=== PATIENT | female | born 1970 | race Caucasian/White ===

== ENCOUNTER 2017-11-26 21:20 | Inpatient (IN) ==
[2017-11-27] MEDS ORDERED: Acetaminophen 325 MG Tablet PO PRN (01:24)
[2017-11-27] MEDS ORDERED: Aluminum/Magnesium/Simethacone Susp 30 ML UDC PO PRN (01:25)
[2017-11-27] MEDS ORDERED: LORazepam 1 MG Tablet PO PRN ×2 (01:25→13:32)
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
[2017-11-27 14:55] LABS: Baso # (Auto) 0.1 th/mm3 (0.0-0.2); Baso % (Auto) 0.6 % (0.0-2.0); Eos # (Auto) 0.2 th/mm3 (0.0-0.4); Eos % (Auto) 1.7 % (0.0-4.0); Hemoglobin 14.5 gm/dL (11.6-15.3); Lymph # (Auto) 3.3 th/mm3 (1.0-4.8); Lymph % (Auto) 34.4 % (9.0-44.0); Mean Corpuscular HGB Conc 34.6 % (32.0-36.0); Mean Corpuscular Hemoglobin 35.2 pg (27.0-34.0); Mean Corpuscular Volume 101.6 fL (80.0-100.0); Mean Platelet Volume 7.8 fL (7.0-11.0); Mono # (Auto) 0.8 th/mm3 (0.0-0.9); Mono % (Auto) 7.9 % (0.0-8.0); Neut # (Auto) 5.3 th/mm3 (1.8-7.7); Neut % (Auto) 55.4 % (16.0-70.0); Platelet Count 247 th/mm3 (150-450); Red Blood Count 4.13 mil/mm3 (4.00-5.30); Red Cell Distribution Width 12.6 % (11.6-17.2); White Blood Count 9.5 th/mm3 (4.0-11.0)
[2017-11-27 15:14] LABS: Alanine Aminotransferase 18 U/L (10-53); Albumin 3.4 g/dL (3.4-5.0); Anion Gap 8 meq/L (5-15); Aspartate Aminotransferase 21 U/L (15-37); Blood Urea Nitrogen 14 mg/dL (7-18); Calcium 8.2 mg/dL (8.5-10.1); Carbon Dioxide 25.6 meq/L (21.0-32.0); Chloride 109 meq/L (98-107); Glomerular Filtration Rate 57 mL/min (>89); Glucose,Random 100 mg/dL (74-106); Potassium 3.9 meq/L (3.5-5.1); Sodium 143 meq/L (136-145)
[2017-11-27 15:23] LABS: Alkaline Phosphatase 35 U/L (45-117); Creatine Kinase 416 U/L (26-192); Total Protein 6.6 g/dL (6.4-8.2)
[2017-11-27 15:35] LABS: CKMB Percent 0.4 % (0.0-4.0); Creatine Kinase MB 1.5 ng/mL (0.5-3.6)
--- NOTE | 2017-11-27 16:04 | P.CONIM ---
History of Present Illness Consult date: 11/27/17 Requesting Physician: Davide Holt Reason for Consult: SOLE Primary Care Provider: Dr. Sanjay Bhandari History of Present Illness: Mrs. Jimenez is a 47 y/o female with hx of depression, anxiety and delusional disorder. She was transferred to [facility] on 11/27/17 from [facility] under a Bray act. Patient presented to [facility] after a drug overdose with a handful of aspirin, Zyprexa and Viibryd. She was admitted to the medical floor at [facility] for management of the overdose and transferred to [place] once medically cleared. Pts labs here at [facility] noted a Cr 1.04/BUN 14, and GFR 57 and total CK of 416. Pts outpt labs in 05/2017 noted Cr 0.66/BUN 12. [facility] Hospitalist team was consulted to help with medical management. Pt does not offer any complaints at the time of examination and refused physical examination. Past Medical history: Depression, previous suicide attempt in 09/2017 by overdose per outpt records Anxiety Delusional disorder Tobacco dependence Past Surgical History: Tonsillectomy Family History: Diabetes, HTN Brother committed suicide when the pt was 13 y/o Social History: (+)Tobacco use, 2ppd per outpt records (+)Alcohol use, pt was previously drinking 6 beers per day but recently decreased to 2-3 beers per day per H&P Pt is and has 2 children, a 15 y/o son and a 19 y/o daughter Pt is currently unemployed Review of Systems All other systems reviewed negative except as stated in HPI [facility] - History History Provided By: Patient, Medical Record - Tobacco History Second Hand Smoke Exposure: No Tobacco Use In Past 30 Days: Yes Smoking Status: Heavy tobacco smoker Tobacco Type: Cigarettes - Alcohol History How Often Do You Have a Drink Containing Alcohol: 4 or more times a week - Substance Use History Substance History: Active Abuse - Substance Use Type Alcohol Status: Active Route Used: By Mouth Frequency: 3-4 BEERS DAILY Last Used: 11/21/2017 Reason for Use: Calm Down, Get High - Immunization History Tetanus Immunization: <5 Years Hx Influenza Vaccine This Season: No Medications and Allergies Active Medications: Active Medications Acetaminophen (Tylenol) 650 mg PO Q4H PRN PRN Reason: PAIN 1-5 OR TEMP > 101 Al Hydrox/Mg Hydrox/Simethicone (Mag-Al Plus Susp Liq) 30 ml PO Q6H PRN PRN Reason: DYSPEPSIA Al Hydroxide/Mg Hydroxide (Milk Of Magnesia Liq) 30 ml PO Q24H PRN PRN Reason: CONSTIPATION Escitalopram Oxalate (Lexapro) 10 mg PO DAILY [facility] Flumazenil (Romazecon Inj) 0.2 mg IV.PUSH Q1M PRN PRN Reason: OVERSEDATION Folic Acid (Folic Acid) 1 mg PO DAILY [facility] Stop: 12/03/17 08:59 Hydroxyzine HCl (Atarax) 10 mg PO Q6H PRN PRN Reason: ANXIETY Lorazepam (Ativan) 1 mg PO Q4H PRN PRN Reason: for CIWA 8-10 Lorazepam (Ativan) 2 mg PO Q2H PRN PRN Reason: for CIWA 11-14 Lorazepam (Ativan Inj) 2 mg IV.PUSH Q2H PRN PRN Reason: for CIWA 11-14 Lorazepam (Ativan Inj) 2 mg IV.PUSH Q1H PRN PRN Reason: for CIWA 15-20 Lorazepam (Ativan Inj) 2 mg IV.PUSH Q15M PRN PRN Reason: for CIWA > 20 Lorazepam (Ativan Inj) 1 mg IV.PUSH Q4H PRN PRN Reason: for CIWA 8-10 Melatonin (Melatonin) 5 mg PO HS PRN PRN Reason: INSOMNIA Multivitamins/Minerals (Theragran-M) 1 tab PO DAILY [facility] Stop: 12/03/17 08:59 Risperidone (Risperdal) 0.5 mg PO BID [facility] Thiamine HCl (Vitamin B1) 100 mg PO DAILY [facility] Allergies Allergy/AdvReac Type Severity Reaction Status Date / Time Sulfa (Sulfonamide Allergy Unknown Unknown Verified 11/27/17 13:11 Antibiotics) Home Medications Medication Instructions Recorded Confirmed Type olanzapine 5 mg PO HS 11/27/17 11/27/17 History vilazodone [Viibryd] 40 mg PO DAILY 11/27/17 11/27/17 History Exam Vital signs: Vital Signs 11/27/17 01:00 11/27/17 06:55 Temperature 98.4 F 97.1 F L Pulse Rate 72 97 H Respiratory Rate 18 19 Blood Pressure 136/71 124/79 Pulse Oximetry 99 100 Intake & Output 11/26/17 11/27/17 11/27/17 18:59 06:59 18:59 Weight 51.7 kg Other: Weight On Admission 51.7 kg Narrative: Pt refused physical examination She was lying down in bed with her eyes closed in NAD Results - Labs CBC & Chem 7: 11/27/17 14:46 11/27/17 14:46 Labs: Laboratory Results - last 24 hr 11/27/17 11/27/17 11/27/17 14:46 14:46 14:46 WBC 9.5 RBC 4.13 Hgb 14.5 Hct 42.0 MCV 101.6 H MCH 35.2 H MCHC 34.6 RDW 12.6 Plt Count 247 MPV 7.8 Neut % (Auto) 55.4 Lymph % (Auto) 34.4 [place] % (Auto) 7.9 Eos % (Auto) 1.7 Baso % (Auto) 0.6 Neut # (Auto) 5.3 Lymph # (Auto) 3.3 [place] # (Auto) 0.8 Eos # (Auto) 0.2 Baso # (Auto) 0.1 WBC Differential . Differential Comment Auto diff final Sodium 143 Potassium 3.9 Chloride 109 H Carbon Dioxide 25.6 Anion Gap 8 BUN 14 Creatinine 1.04 H Estimated GFR 57 L Random Glucose 100 Calcium 8.2 L Total Bilirubin 0.2 AST 21 ALT 18 Alkaline Phosphatase 35 L Total Creatine Kinase 416 H CK-MB (CK-2) 1.5 CK-MB (CK-2) % 0.4 Troponin I Cancelled Total Protein 6.6 Albumin 3.4 TSH 1.040 Beta HCG, Qual 11/27/17 14:46 WBC RBC Hgb Hct MCV MCH MCHC RDW Plt Count MPV Neut % (Auto) Lymph % (Auto) [place] % (Auto) Eos % (Auto) Baso % (Auto) Neut # (Auto) Lymph # (Auto) [place] # (Auto) Eos # (Auto) Baso # (Auto) WBC Differential Differential Comment Sodium Potassium Chloride Carbon Dioxide Anion Gap BUN Creatinine Estimated GFR Random Glucose Calcium Total Bilirubin AST ALT Alkaline Phosphatase Total Creatine Kinase CK-MB (CK-2) CK-MB (CK-2) % Troponin I Total Protein Albumin TSH Beta HCG, Qual Cancelled Assessment and Plan - Assessment (1) SOLE (acute kidney injury) Code(s): N17.9 - Acute kidney failure, unspecified Status: Acute Plan: Attempted suicide via overdose Depression Delusions SOLE - Pt is a 47 y/o female with hx of depression, anxiety and delusional disorder. - She was transferred to [facility] on 11/27/17 from [facility] under a Bray act. Patient presented to [facility] after a drug overdose with a handful of aspirin, Zyprexa and Viibryd. - Pts labs here at [facility] noted a Cr 1.04/BUN 14, and GFR 57 and total CK of 416. - Pts outpt labs in 05/2017 noted Cr 0.66/BUN 12. - Pt is reportedly being transferred to Med/Psych unit so we will order IVF with NS @ 100mL/hr x 1 bag - Recheck BMP in AM - Attending has ordered Ammonia, HELENA, CPK, CKMB profile, HIV, RPR, Thiamine, Vitamin B12, TSH, and Troponin I - Her EKG was reviewed and her QT corrected was 398 - Repeat EKG in AM - Encouraged oral intake - Supportive care - Management of depression/delusions per Psychiatry Tobacco use - Tobacco cessation Alcohol use - [facility] protocol ordered (2) Depressive disorder Code(s): F32.9 - Major depressive disorder, single episode, unspecified Status : Acute (3) Unspecified psychosis Code(s): F29 - Unspecified psychosis not due to a substance or known physiological condition Status: Acute
[2017-11-27] MEDS ORDERED: Sod Chloride 0.9% Inj 1,000 ML IV.CONT SCH (16:30)
[2017-11-27 17:03] LABS: Vitamin B12 532 pg/mL (193-986)
[2017-11-28] MEDS: Melatonin 5 MG Tablet PO PRN (03:50)
[2017-11-28] MEDS: Folic Acid 1 MG Tablet PO SCH (08:16)
[2017-11-28] MEDS: Escitalopram 10 MG Tablet PO SCH (08:16)
[2017-11-28] MEDS: Multivitamin/Minerals Therapeutic Tablet PO SCH (08:17)
[2017-11-28 09:26] LABS: Calcium 8.6 mg/dL (8.5-10.1); Carbon Dioxide 24.1 meq/L (21.0-32.0); Potassium 4.2 meq/L (3.5-5.1)
[2017-11-28 09:47] LABS: CKMB Percent 0.3 % (0.0-4.0); Creatine Kinase MB 1.1 ng/mL (0.5-3.6)
--- NOTE | 2017-11-28 14:44 | MR ---
EXAM DATE: 11/28/2017 2:28 PM EDT AGE/SEX: 47 years / Female INDICATIONS: . Psychosis. CLINICAL DATA: This is the patient's initial encounter. Patient reports that signs and symptoms have been present for 1 day and indicates a pain score of 0/10. MEDICAL/SURGICAL HISTORY: None. Tonsillectomy. COMPARISON: No prior exams available for comparison. TECHNIQUE: Multiplanar, multisequence examination of the brain was performed without contrast. FINDINGS: Cerebrum: The ventricles are normal for age. No evidence of midline shift, mass lesion, hemorrhage or acute infarction. No extraaxial fluid collections are seen. The pituitary gland and suprasellar cistern are normal in configuration. White Matter: No significant signal abnormalities are seen in the white matter. Posterior Fossa: The cerebellum and brainstem are intact. The 4th ventricle is midline. The cerebel lopontine angle is unremarkable. The cerebellar tonsils are normal in position. Diffusion Imaging: No focal areas of restricted diffusion are seen. No evidence of acute infarction . Extracranial: The visualized portions of the orbits and paranasal sinuses are unremarkable. CONCLUSION: 1. Negative MR Brain non contrast. Electronically signed by: Oanh Caldera MD 11/28/2017 2:43 PM EDT
--- NOTE | 2017-11-28 16:15 | P.PNPSY ---
Subjective Chief Complaint: Overdose. Psychotic bipolar depression. Remarks: Patient seen for follow up; chart reviewed. Discussion with nursing staff reported that patient endorsing auditory hallucinations, and recent MRI done today. Patient was found sitting hospital bed noted B, cooperative. Patient states that she has been feeling "not good" reporting that she is unable to recall recent events but did recall taking pills in an overdose. Patient noted be tearful when speaking about this stating that she was having "really crazy thoughts, like to have her children" which contributed to her overdose. Patient states that the auditory hallucinations are there all the time and continues to endorse this. Prior to interview today. Patient did have psychic distress to these intrusive thoughts. Review of Systems All other systems reviewed negative except as stated in HPI Mental Status Examination Appearance: Appropriate Consciousness: Alert Orientation: x4 Motor Activity: Other (No motor abnormalities noted) Speech: Unremarkable Language: Adequate Fund of Knowledge: Adequate Attention and Concentration: Easily distracted Memory: Unremarkable (Grossly intact on clinical exam) Mood: Other (Depressed) Affect: Other (Inappropriate at times) Thought Process & Associations: Circumstantial Thought Content: Hallucinations, Delusional Hallucination Type: Auditory Delusion Type: Other (Ego-syntonic depressive delusions) Suicidal Ideation: Yes Suicidal Plan: No Suicidal Intention: No Homicidal Ideation: No Homicidal Plan: No Homicidal Intention: No Insight: Fair Judgment: Impulsive Assessment and Plan - Assessment (1) Unspecified psychosis Code(s): F29 - Unspecified psychosis not due to a substance or known physiological condition Status: Acute (2) Depressive disorder Code(s): F32.9 - Major depressive disorder, single episode, unspecified Status : Acute - Plan Plan: Patient this time continues to have ongoing auditory hallucinations as well as intrusive ego-dystonic thoughts of hurting others. increase risperidone 0.5 mg a.m./1 mg at bedtime for psychosis. Recent MRI with negative findings for acute pathology. We will continue to monitor mood and behavior. Discharge planning in progress. Justification for Continued Inpatient Stay: At risk of further decompensation a lower level of care. Request Healthcare Surrogate/Guardian Advocate?: No
[2017-11-29] MEDS: Melatonin 5 MG Tablet PO PRN ×2 (00:58→20:20)
--- NOTE | 2017-11-29 07:38 | P.DIET ---
Nutritional Evaluation Type of nutrition evaluation: initial Nutrition screening: [facility] [place]: Weight Loss, Low BMI Objective - Objective [place] body weight: 68 kg % IBW: 75 Body Weight Used for Calculations: Actual (57.1kg) Energy Needs - Lower Range (kCal/kg): 33 Energy Needs - Upper Range (kCal/kg): 38 Lower Limit kCal/kg (kCals): 1,706 Upper Limit kCal/kg (kCals): 1,965 Lower Limit Protein Factor (Grams per Kg): 1.1 Upper Limit Protein Factor (Grams per Kg): 1.3 Lower Protein Needs (Protein): 57 Upper Protein Needs (Protein): 67 Fluid Factor (ml/kg): 35 Estimated Fluid Needs (ml): 1,810 Dietitian Reviewed in Medical Record: Current diet, Curent medications, Intake & Output, Labs, Medical history Diet Order: Regulaar Objective Comments: PMH: Depression, Anxiety, Delusional Disorder, previous suicide attempt (09/2107) Meds include: Folic Acid, Theragran M, Thiamine, Risperdal Labs include: Glucose 140, TCK 410 (-)BM Assessment Assessment: Pt at nutritional risk r/t current clinical status. Pt admitted via [facility] for overdose. Noted pt refused physical exam on admission. Her nutritional needs are as assessed above. Pt's current po intake varies from 25-100%. Pt is extremely underweight at 75% of her ideal body weight with a BMI of 16.4. Will provide Enlive TID, each bottle contains 350kcals and 20gms protein. Will monitor po intake for adequacy. Recommendations: Regular diet with Enlive TID Dietitian to Monitor: Supplement acceptance, Diet tolerance, Weight change, PO Intake, Medical course
[2017-11-29] MEDS: Folic Acid 1 MG Tablet PO SCH (09:28)
[2017-11-29] MEDS: Multivitamin/Minerals Therapeutic Tablet PO SCH (09:29)
[2017-11-29] MEDS: Escitalopram 10 MG Tablet PO SCH (09:29)
--- NOTE | 2017-11-29 12:10 | ECG ---
Date Performed: 11/27/2017 Time Performed: 14:11:21 PTAGE: 47 years EKG: Sinus rhythm MODERATE T-WAVE ABNORMALITY, CONSIDER ANTERIOR ISCHEMIA ABNORMAL ECG NO PREVIOUS TRACING DOCTOR: Davide Torres Interpretating Date/Time 11/29/2017 12:09:13
--- NOTE | 2017-11-29 12:44 | ECG ---
Date Performed: 11/28/2017 Time Performed: 09:05:59 PTAGE: 47 years EKG: Sinus rhythm Nonspecific T wave changes NORMAL ECG PREVIOUS TRACING : 11/27/2017 14.11 DOCTOR: Davide Torres Interpretating Date/Time 11/29/2017 12:42:40
--- NOTE | 2017-11-29 16:14 | P.PNPSY ---
Subjective Chief Complaint: Overdose. Psychotic bipolar depression. Remarks: Patient seen for follow-up, chart reviewed. Discussion with nursing staff reported the patient asking about ECT, continues to endorse auditory hallucinations. Patient was found visiting with daughter noted to be, cooperative also noted to have slightly labile mood with inappropriate laughing at times. Patient states that she is continuing to have auditory hallucinations and intrusive thoughts of wanting to hurt her children. Patient reports having continued difficulty with sleep. Patient saw preservative on option of ECT and asking if she is going to get better. Patient has a history of noncompliance with medication and was reiterated to her importance of adherence to treatment. Review of Systems All other systems reviewed negative except as stated in HPI Mental Status Examination Appearance: Appropriate Consciousness: Alert Orientation: x4 Motor Activity: Other (No motor abnormalities noted) Speech: Unremarkable Language: Adequate Fund of Knowledge: Adequate Attention and Concentration: Easily distracted Memory: Unremarkable (Grossly intact on clinical exam) Mood: Other (Depressed) Affect: Labile, Other (Laughing inappropriately at times) Thought Process & Associations: Circumstantial Thought Content: Hallucinations, Delusional Hallucination Type: Auditory Delusion Type: Other (Ego-syntonic depressive delusions) Suicidal Ideation: No Suicidal Plan: No Suicidal Intention: No Homicidal Ideation: No Homicidal Plan: No Homicidal Intention: No Insight: Fair Judgment: Impulsive Assessment and Plan - Assessment (1) Unspecified psychosis Code(s): F29 - Unspecified psychosis not due to a substance or known physiological condition Status: Acute (2) Depressive disorder Code(s): F32.9 - Major depressive disorder, single episode, unspecified Status : Acute - Plan Plan: Patient continues with auditory hallucinations and intrusive thoughts. We will increase risperidone to 1 mg p.o. twice daily for psychosis. Continue rest of medications. We will continue to monitor mood and behavior. Discharge planning in progress. Justification for Continued Inpatient Stay: At risk of further decompensation a lower level care. Request Healthcare Surrogate/Guardian Advocate?: No
[2017-11-30] MEDS: Multivitamin/Minerals Therapeutic Tablet PO SCH (08:54)
[2017-11-30] MEDS: Folic Acid 1 MG Tablet PO SCH (08:55)
[2017-11-30] MEDS: Escitalopram 10 MG Tablet PO SCH (08:55)
--- NOTE | 2017-11-30 14:00 | P.PNPSY ---
Subjective Chief Complaint: Overdose. Remarks: Patient seen and examined with nurse. Chart reviewed. Case discussed with nursing staff. On my examination today, the patient remained somewhat paranoid. She believes that people are hacking into her [employer] account. Thought process is somewhat tangential with loosening of associations. She rambles about her mother playing some sort of tape back to her and saying that she was a bad seed and speaks about finding a man in her bed when she was at home several months ago. Regarding this latter episode, Dr. Forman had indicated that the patient had shared similar material with her, although the veracity or basis in reality of this report is presently unclear. She denies any SI or HI. Denies any AVH. She denies side effects from medications besides some mild tiredness. No physical complaints. Vital Signs Temp Pulse Resp BP Pulse Ox 11/30/17 04:00 98.1 F 67 16 125/67 11/30/17 00:00 97.9 F 70 17 100/55 L 94 L 11/29/17 20:00 98.1 F 67 16 101/50 L 95 11/29/17 18:22 98.5 F 94 H 18 127/57 L 96 Intake and Output 11/30/17 11/30/17 11/30/17 06:59 14:59 22:59 Intake Total 720 / 720 Balance 720 / 720 Intake: Oral 720 / 720 Laboratory Tests 11/27/17 11/27/17 11/27/17 14:46 14:46 14:46 WBC 9.5 Hgb 14.5 Plt Count 247 ESR 3 Sodium 143 Potassium 3.9 Chloride 109 H Carbon Dioxide 25.6 BUN 14 Creatinine 1.04 H Estimated GFR Random Glucose Calcium AST 21 ALT 18 Alkaline Phosphatase 35 L Ammonia Total Creatine Kinase 416 H CK-MB (CK-2) CK-MB (CK-2) % Vitamin B12 532 TSH 1.040 Beta HCG, Quant Less than 1 HELENA Screen RPR HIV 1&2 Ab/P24 Ag 4thGn 11/27/17 11/27/17 11/27/17 16:49 16:49 16:49 WBC Hgb Plt Count ESR Sodium Potassium Chloride Carbon Dioxide BUN Creatinine Estimated GFR Random Glucose Calcium AST ALT Alkaline Phosphatase Ammonia 19 Total Creatine Kinase CK-MB (CK-2) CK-MB (CK-2) % Vitamin B12 TSH Beta HCG, Quant HELENA Screen RPR Nonreactive HIV 1&2 Ab/P24 Ag 4thGn Nonreactive 11/27/17 11/28/17 16:49 08:52 WBC Hgb Plt Count ESR Sodium 138 Potassium 4.2 Chloride 105 Carbon Dioxide 24.1 BUN 9 Creatinine 0.86 Estimated GFR 70 L Random Glucose 140 H Calcium 8.6 AST ALT Alkaline Phosphatase Ammonia Total Creatine Kinase 410 H CK-MB (CK-2) 1.1 CK-MB (CK-2) % 0.3 Vitamin B12 TSH Beta HCG, Quant HELENA Screen Neg RPR HIV 1&2 Ab/P24 Ag 4thGn Labs reviewed. Organic causes of psychosis workup unrevealing. GFR improved but CK unchanged. Repeat EKG read as sinus rhythm with QTC of 430 ms, not prolonged. MRI brain read as normal. Review of Systems All other systems reviewed negative except as stated in HPI (Limitation: Psychosis) Mental Status Examination Appearance: Appropriate Consciousness: Alert Orientation: x4 Motor Activity: Normal gait, Other (No hand tremor, no dystonia, no dyskinesia, no other motor abnormalities noted.) Speech: Rapid (Somewhat rapid) Language: Other (Somewhat rambling) Fund of Knowledge: Adequate Attention and Concentration: Easily distracted Memory: Unremarkable (Grossly intact on clinical exam) Mood: Anxious, Other (Improved versus initial presentation) Affect: Anxious Thought Process & Associations: Loose associations, Tangential Thought Content: Delusional Hallucination Type: None Delusion Type: Paranoid Suicidal Ideation: No Suicidal Plan: No Suicidal Intention: No Homicidal Ideation: No Homicidal Plan: No Homicidal Intention: No Insight: Fair Judgment: Impulsive Mental Status Exam Remarks: No signs of withdrawal noted. Assessment and Plan - Assessment (1) Unspecified psychosis Code(s): F29 - Unspecified psychosis not due to a substance or known physiological condition Status: Acute (2) Depressive disorder Code(s): F32.9 - Major depressive disorder, single episode, unspecified Status : Acute - Plan Plan: Patient did have some marginally low blood pressures overnight and complains of some tiredness from psychotropic medications, and so I will hold off on titrating patient's medications today. I do think she would benefit from additional Risperdal, and this will likely be adjusted tomorrow. Dietitian input noted and appreciated. Continue to monitor on the inpatient unit. Continue other medications and care as ordered. Justification for Continued Inpatient Stay: Medication changes planned. Impairment in reality construction. Risk for decompensation in less restrictive environment. Discharge Planning: Pending psychiatric stabilization. Request Healthcare Surrogate/Guardian Advocate?: No
[2017-12-01 07:21] LABS: Calcium 8.8 mg/dL (8.5-10.1); Carbon Dioxide 29.2 meq/L (21.0-32.0); Potassium 4.1 meq/L (3.5-5.1)
[2017-12-01] MEDS: Folic Acid 1 MG Tablet PO SCH (09:41)
[2017-12-01] MEDS: Multivitamin/Minerals Therapeutic Tablet PO SCH (09:41)
[2017-12-01] MEDS: Escitalopram 10 MG Tablet PO SCH (09:41)
--- NOTE | 2017-12-01 13:45 | P.PNPSY ---
Subjective Chief Complaint: Overdose. Remarks: Patient seen and examined with nurse. Chart reviewed. Case discussed with nursing staff who reports the patient does remain somewhat internally stimulated. Case discussed with treatment team. On my examination today, the patient says that she is feeling much improved and is hopeful that we can begin to discuss discharge planning soon. Insight into the circumstances of presentation here and mental illness generally seem somewhat poor. For example when I ask about her thoughts regarding presenting suicide attempt the patient says blithely "I am not going to do that again." When I ask about her alcohol use she says "I do not need to drink." She does admit with some further questioning that her alcohol use was getting out of hand prior to admission. She remains a little bit guarded and I do suspect some degree of underlying thought disorder. Patient admits that she was not able to attend partial hospitalization program as recommended by outpatient psychiatrist because she was "a little paranoid." Denies side effects from medications. No physical complaints. Vital Signs Temp Pulse Resp BP Pulse Ox 12/01/17 16:00 98.5 F 66 18 108/56 L 96 12/01/17 05:51 97.9 F 76 16 118/62 96 11/30/17 18:21 98.4 F 69 17 124/58 L 99 Laboratory Results - last 24 hr 12/01/17 06:07 Sodium 141 Potassium 4.1 Chloride 105 Carbon Dioxide 29.2 Anion Gap 7 BUN 15 Creatinine 0.83 Estimated GFR 73 L Random Glucose 90 Calcium 8.8 Total Creatine Kinase 57 Labs reviewed. CK normalized. GFR stable. Review of Systems All other systems reviewed negative except as stated in HPI Mental Status Examination Appearance: Appropriate Consciousness: Alert Orientation: x4 Motor Activity: Normal gait, Other (No motor abnormalities noted. No signs of withdrawal noted.) Speech: Rapid (Normalizing) Language: Other (Less rambling) Fund of Knowledge: Adequate Attention and Concentration: Easily distracted Memory: Unremarkable (Grossly intact on clinical exam) Mood: Anxious Affect: Anxious Thought Process & Associations: Loose associations (Improving), Circumstantial Thought Content: Delusional Hallucination Type: None Delusion Type: Paranoid (Decreasing) Suicidal Ideation: No Suicidal Plan: No Suicidal Intention: No Homicidal Ideation: No Homicidal Plan: No Homicidal Intention: No Insight: Fair Judgment: Impulsive Assessment and Plan - Assessment (1) Unspecified psychosis Code(s): F29 - Unspecified psychosis not due to a substance or known physiological condition Status: Acute (2) Depressive disorder Code(s): F32.9 - Major depressive disorder, single episode, unspecified Status : Acute - Plan Plan: Titrate Risperdal to 1.5 mg twice daily to target residual psychotic symptoms. To consider long-acting injectable antipsychotic. Continue Lexapro as ordered. Continue to monitor on the inpatient unit. Continue other medications and care as ordered. Justification for Continued Inpatient Stay: High risk for decompensation in less restrictive environment. Medication changes. Concern for ongoing impairments in reality construction. Discharge Planning: Pending psychiatric stabilization. Given patient's reported recurrent recent hospitalizations, I believe that more extended observation and stabilization is warranted before transitioning her to lower level of care. Request Healthcare Surrogate/Guardian Advocate?: No
[2017-12-02] MEDS: Escitalopram 10 MG Tablet PO SCH (08:25)
[2017-12-02] MEDS: Folic Acid 1 MG Tablet PO SCH (08:26)
[2017-12-02] MEDS: Multivitamin/Minerals Therapeutic Tablet PO SCH (08:27)
--- NOTE | 2017-12-02 14:34 | P.PNPSY ---
Subjective Chief Complaint: Overdose. Remarks: Patient seen and examined with nurse. Chart reviewed. I was notified by the nurse in the late afternoon yesterday of an issue with the medication consent for patient's Risperdal, as consent had been obtained only for a dose of up to 1mg BID. I therefore instructed the nurse to administer only 1mg at HS instead of the 1.5mg I had ordered. Instead, it appears patient was given 1mg plus an additional 1.5mg at HS. Case discussed with nursing staff. On my examination today, patient has tolerated medications well without side effects. She remains paranoid, as she herself admits, and says that she is contemplating getting a [id number] job so that she will not have to venture into the community as a consequence of her paranoia. No SI/HI. Denies side effects from medications. We did begin discussion about possible long-acting injectable. No physical complaints. Vital Signs Temp Pulse Resp BP Pulse Ox 12/02/17 04:00 98.3 F 69 16 100/49 L 95 12/01/17 16:00 98.5 F 66 18 108/56 L 96 Laboratory Results - last 24 hr 11/27/17 16:49 Thiamine 189 H Labs reviewed. Folate level still pending. Review of Systems All other systems reviewed negative except as stated in HPI Mental Status Examination Appearance: Appropriate Consciousness: Alert Orientation: x4 Motor Activity: Normal gait, Other (No abnormal motor movements noted.) Speech: Unremarkable Language: Adequate Fund of Knowledge: Adequate Attention and Concentration: Other (Fair) Memory: Unremarkable (Grossly intact on clinical exam) Mood: Anxious Affect: Anxious Thought Process & Associations: Intact Thought Content: Delusional Hallucination Type: None Delusion Type: Paranoid (Decreasing) Suicidal Ideation: No Suicidal Plan: No Suicidal Intention: No Homicidal Ideation: No Homicidal Plan: No Homicidal Intention: No Insight: Fair Judgment: Impulsive Assessment and Plan - Assessment (1) Unspecified psychosis Code(s): F29 - Unspecified psychosis not due to a substance or known physiological condition Status: Acute (2) Depressive disorder Code(s): F32.9 - Major depressive disorder, single episode, unspecified Status : Acute - Plan Plan: Titrate Risperdal to 2 mg twice daily to target residual psychotic material. I have obtained consent for a dose up to 8 mg a day of Risperdal. Continue Lexapro as ordered. Continue to monitor on the inpatient unit. Continue other medications and care as ordered. Justification for Continued Inpatient Stay: Medication changes. Impairment in reality construction. High risk for decompensation in less restrictive environment. Discharge Planning: Pending psychiatric stabilization. Case discussed with counselor. Request Healthcare Surrogate/Guardian Advocate?: No
[2017-12-03] MEDS: Escitalopram 10 MG Tablet PO SCH (09:09)
[2017-12-03] MEDS ORDERED: Paliperidone Inj 156 MG/ML Syringe IM ONE (15:30)
--- NOTE | 2017-12-03 15:36 | P.PNPSY ---
Subjective Chief Complaint: Overdose. Remarks: Patient seen and examined with nurse. Chart reviewed. Case discussed with nursing staff. Case discussed with counselor who reports that [facility] would consider accepting patient if she were on a long-acting injectable. On my examination today, the patient believes that she is "progressing" with her "paranoia and delusions." She seems to have greater insight and says that she is able to build a mental "brick wall" against delusional thoughts. She remains a little discharge focused but is willing to remain for initiation of long-acting injectable. I have extensive discussion with patient regarding her options vis-a-vis TEE, and I have emphasized that acceptance of injection is not compulsory. We ultimately agree upon initiation of Invega Sustenna. She denies SI or HI. Denies side effects from medications. No physical complaints. I did put out a call to outpatient provider Dr. Forman to discuss patient's progress and left generic VM. Vital Signs Temp Pulse Resp BP Pulse Ox 12/03/17 04:59 97.6 F 76 16 111/54 L 95 12/02/17 18:23 97.6 F 65 18 118/82 97 Intake and Output 12/03/17 12/03/17 12/03/17 06:59 14:59 22:59 Other: Weight 56.3 kg Laboratory Results - last 24 hr 11/27/17 16:49 RBC Folate 706 Labs reviewed. Review of Systems All other systems reviewed negative except as stated in HPI Mental Status Examination Appearance: Appropriate Consciousness: Alert Orientation: x4 Motor Activity: Normal gait, Other (No motor abnormalities noted) Speech: Unremarkable Language: Adequate Fund of Knowledge: Adequate Attention and Concentration: Other (Fair) Memory: Unremarkable (Grossly intact on clinical exam) Mood: Appropriate Affect: Appropriate Thought Process & Associations: Intact Thought Content: Delusional Hallucination Type: None Delusion Type: Paranoid (Continues to decrease) Suicidal Ideation: No Suicidal Plan: No Suicidal Intention: No Homicidal Ideation: No Homicidal Plan: No Homicidal Intention: No Mental Status Exam Remarks: Insight and judgment are perhaps fair. Assessment and Plan - Assessment (1) Unspecified psychosis Code(s): F29 - Unspecified psychosis not due to a substance or known physiological condition Status: Acute (2) Depressive disorder Code(s): F32.9 - Major depressive disorder, single episode, unspecified Status : Acute - Plan Plan: Initiate Invega Sustenna 156mg IM today (renally dosed given GFR of 73) with plans for booster dose on Thursday. Continue oral Risperdal supplementation until patient receives booster dose, although oral supplementation thereafter should not be required. Continue Lexapro as ordered. Continue to monitor on the inpatient unit. Continue other care as ordered. Justification for Continued Inpatient Stay: Risk for decompensation in less restrictive environment. Medication changes. Discharge Planning: Pending psychiatric stabilization. Anticipate discharge after the weekend. Request Healthcare Surrogate/Guardian Advocate?: No
[2017-12-03] MEDS: Melatonin 5 MG Tablet PO PRN (20:58)
[2017-12-04] MEDS: Escitalopram 10 MG Tablet PO SCH (09:34)
--- NOTE | 2017-12-04 10:42 | P.DIET ---
Nutritional Evaluation Type of nutrition evaluation: follow[place]up [place] [facility] [place] Objective - Diagnosis Overdose - Objective % IBW: 83 (SOU=814#) Body Weight Used for Calculations: IBW (68.2kg) Energy Needs - Lower Range (kCal/kg): 25 Energy Needs - Upper Range (kCal/kg): 30 Lower Limit kCal/kg (kCals): 1,705 Upper Limit kCal/kg (kCals): 2,046 Lower Limit Protein Factor (Grams per Kg): 1.1 Upper Limit Protein Factor (Grams per Kg): 1.3 Lower Protein Needs (Protein): 75 Upper Protein Needs (Protein): 89 Dietitian Reviewed in Medical Record: Current diet, Curent medications, Intake & Output, Labs, Medical history Diet Order: Regular Oral Diet Intake Amount: Excellent 90%+ Assessment Assessment: Pt remains on a Regular diet and is tolerating well. Her PO intake is good, 75- 100% of meals consumed. She is also receiving Ensure Enlive TID for her low wt status. Overall, she is doing well with her appetite and PO intake. She does remain at nutritional risk 2/2 her low wt status. Continue current POC. Dietitian following. Recommendations: 1. Continue current POC. Dietitian to Monitor: Lab values, Supplement acceptance, Intake & Output, Diet tolerance, Weight change, PO Intake, Medical course
--- NOTE | 2017-12-04 14:30 | P.PNPSY ---
Subjective Chief Complaint: Overdose. Remarks: Reviewed electronic medical records and discussed case with staff. Follow-up was conducted in the patient's room. EDEN Agarwal reports that she held her risperidone this morning due to a low blood pressure. She spoke with Dr. Holt via phone who suggested decreasing the risperidone dose from 2 mg to 1 mg. I have done this. Patient was found sitting up on the bed. She reports that she is sleeping better but still having some nightmares. She states that her appetite's been good. Her only identified side effects are feeling "a little groggy". Overall she states she is feeling much better. Her mood is good her affect is euthymic. Mental Status Examination Appearance: Appropriate Consciousness: Alert Orientation: x4 Motor Activity: Normal gait, Other (No motor abnormalities noted) Speech: Unremarkable Language: Adequate Fund of Knowledge: Adequate Attention and Concentration: Other (Fair) Memory: Unremarkable (Grossly intact on clinical exam) Mood: Appropriate Affect: Appropriate Thought Process & Associations: Intact Thought Content: Delusional Hallucination Type: None Delusion Type: Paranoid (Continues to decrease) Suicidal Ideation: No Suicidal Plan: No Suicidal Intention: No Homicidal Ideation: No Homicidal Plan: No Homicidal Intention: No Insight: Fair Judgment: Impulsive Assessment and Plan - Assessment (1) Unspecified psychosis Code(s): F29 - Unspecified psychosis not due to a substance or known physiological condition Status: Acute - Plan Plan: Patient will be reevaluated Thursday by the attending psychiatrist. Continue with current treatment plan. Justification for Continued Inpatient Stay: Moving this patient to a less restrictive environment would likely result in decompensation. Request Healthcare Surrogate/Guardian Advocate?: No
[2017-12-05] MEDS: Escitalopram 10 MG Tablet PO SCH (09:36)
--- NOTE | 2017-12-05 15:10 | P.PNPSY ---
Subjective Chief Complaint: Overdose. Remarks: Reviewed electronic medical records and discussed case with staff. Follow-up was conducted in patient's room with EDEN Reina present. Patient is awake, alert and oriented 4. She reports that she is "just taking out". States that she slept well and her appetite has been good. Currently she is still having some hypotension but, she mentions that she is "skinny". It is likely that her blood pressure normally runs low. We will continue to monitor. Mental Status Examination Appearance: Appropriate Consciousness: Alert Orientation: x4 Motor Activity: Normal gait, Other (No motor abnormalities noted) Speech: Unremarkable Language: Adequate Fund of Knowledge: Adequate Attention and Concentration: Other (Fair) Memory: Unremarkable (Grossly intact on clinical exam) Mood: Appropriate Affect: Appropriate Thought Process & Associations: Intact Thought Content: Delusional Hallucination Type: None Delusion Type: Paranoid (Continues to decrease) Suicidal Ideation: No Suicidal Plan: No Suicidal Intention: No Homicidal Ideation: No Homicidal Plan: No Homicidal Intention: No Insight: Fair Judgment: Impulsive Assessment and Plan - Assessment (1) Unspecified psychosis Code(s): F29 - Unspecified psychosis not due to a substance or known physiological condition Status: Acute - Plan Plan: Patient will be reevaluated Thursday by the attending psychiatrist. Continue with current treatment plan. Justification for Continued Inpatient Stay: Moving this patient to a less restrictive environment would likely result in decompensation. Request Healthcare Surrogate/Guardian Advocate?: No
[2017-12-06] MEDS: Escitalopram 10 MG Tablet PO SCH (08:32)
--- NOTE | 2017-12-06 13:57 | P.PNPSY ---
Subjective Chief Complaint: Overdose. Remarks: Reviewed electronic medical records and discussed case with staff. Follow-up was conducted in patient's room EDEN Ndiaye. Patient is pleasant. She states that she is feeling alot better since she started the Invega Sustenna. Denies any AVH. Denies SI/HI. She is looking forward to discharge and is asking appropriate questions regarding follow up care. Review of Systems All other systems reviewed negative except as stated in HPI Mental Status Examination Appearance: Appropriate Consciousness: Alert Orientation: x4 Motor Activity: Normal gait, Other (No motor abnormalities noted) Speech: Unremarkable Language: Adequate Fund of Knowledge: Adequate Attention and Concentration: Easily distracted Memory: Unremarkable (Grossly intact on clinical exam) Mood: Appropriate Affect: Appropriate Thought Process & Associations: Intact Thought Content: Appropriate Hallucination Type: None Delusion Type: None, Paranoid Suicidal Ideation: No Suicidal Plan: No Suicidal Intention: No Homicidal Ideation: No Homicidal Plan: No Homicidal Intention: No Insight: Adequate Judgment: Adequate Assessment and Plan - Assessment (1) Psychosis Code(s): F29 - Unspecified psychosis not due to a substance or known physiological condition Status: Acute - Plan Plan: Patient will be reevaluated Thursday by the attending psychiatrist. Continue with current treatment plan. Justification for Continued Inpatient Stay: Moving patient to less restrictive environment may result in her decompensation. Request Healthcare Surrogate/Guardian Advocate?: No
[2017-12-07] MEDS: Escitalopram 10 MG Tablet PO SCH (09:12)
[2017-12-07 10:23] VITALS: BP 99/50; PULSE 66; RESP 18; TEMP 98.7; O2SAT 94
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
[2017-12-07] MEDS ORDERED: Paliperidone Inj 156 MG/ML Syringe IM SCH (12:00)
== END 2017-12-07 15:15 | disposition home or self-care (01) ==
LOC: H270 11-27 → H4EA 11-27 21:20 → H260 11-30 12:35
PROVIDERS: ADMIT Psychiatry & Neurology Psychiatry; ATTEND Psychiatry & Neurology Psychiatry